=== PATIENT | female | born 1980 | race Caucasian/White ===

== ENCOUNTER 2019-02-12 11:33 | Emergency (ER) | payer BC, OTHER ==
--- OUTSIDE RECORDS SUMMARY | 2019-02-12 11:38 | XMS REPORT | Continuity of Care Document ---
:1980 External Reference #:[id number] Author Name Ellis Kenny Care Team Providers Name Role Phone Flaca Nelson M.D. Primary Care Physician Unavailable Payers Date Identification Numbers Payment Provider Subscriber Policy Number: [id number] [facility] Cherie Vance PayID: [id number] [address] [place] [address] Advance Directives Description No Information Available Problems Description No Information Family History Description No Information Available Social History Type Date Description Comments Sex Unknown Marital Status Single Occupation Wildlife researcher at [employer] ETOH Use Occasionally consumes alcohol Tobacco Use Start: Unknown Patient has never smoked Smoking Status Reviewed: 08/22/18 Patient has never smoked Exercise Type/Frequency Exercises regularly Allergies, Adverse Reactions, Alerts Date Description Reaction Status Severity Comments 09/10/2016 Caffeine migraine Active Medications Medication Date Status Form Strength Qnty SIG Indications Ordering Provider Vivotif 08/[address] 4caps one capsule Z02.89 E. /2017 every other , x 4 M.D. doses, take about an hour before a meal with a cold or lukewarm drink- keep refrigerated Amoxicillin 11/04 Active Capsules 500mg 14cap 1 two times a J06.9 Franck E. /2016 s day for 7 Constanza, days M.D. Ibuprofen 00/00 Active Tablets 200mg as needed Unknown /0000 Doxylamine 0000 Active Powder 12.5 takes at at Unknown Succinate /0000 bedtime otc Melatonin ER 00/00 Active Tablets ER 3mg 1-2 tab by Unknown /0000 mouth every night prn Multivitamin 00/00 Active occasionally Unknown /0000 Calcium 00/00 Active occasionally Unknown /0000 Glucosamine 00/00 Active occasionally Unknown /0000 Flonase 00 Active Suspension 50mcg/Act spray 1 spray Unknown Allergy Relief /0000 in each nostril twice daily Sumatriptan Active Tablets 50mg 14tab take 1 at Franck E. Succinate /0000 s onset of elizabeth Apodaca. may M.D. repeat within 2 hours if needed. max 2x/week. max daily dose 100mg Immunizations CPT Code Status Date Vaccine Lot # [id number] Given 08/22/2018 Influenza Virus Vaccine, Quadrivalent, Split, [id number] Preservative Free [id number] Given 08/22/2018 Hepatitis A Vaccine Adult Dosage [id number] Given 09/10/2016 Influ Virus Vaccine, Quadrivalent, Split Virus, Im [id number] Fluzone not PF Vital Signs Date Vital Result Comment 08/22/2018 9:07am Height 66.5 inches 5'6.50" Weight 208.00 lb Heart Rate 92 /min BP Systolic 116 mmHg BP Diastolic 76 mmHg O2 % BldC Oximetry 96 % BMI (Body Mass Index) 33.1 kg/m2 11/04/2017 5:10pm Height 66.5 inches 5'6.50" Weight 218.00 lb Heart Rate 88 /min BP Systolic Sitting 130 mmHg BP Diastolic Sitting 90 mmHg Body Temperature 97.1 F O2 % BldC Oximetry 98 % BMI (Body Mass Index) 34.7 kg/m2 09/10/2016 3:29pm Height 66.5 inches 5'6.50" Weight 224.00 lb Heart Rate 90 /min BP Systolic Sitting 108 mmHg BP Diastolic Sitting 76 mmHg Body Temperature 98.1 F O2 % BldC Oximetry 97 % BMI (Body Mass Index) 35.6 kg/m2 Results Test Date Facility Test Result H/L Range Note Iron & Iron Binding 09/16/2016 [facility] Iron 141 g/dL N 50 -[address] [place] [address] [phone] Unsaturated Iron Binding 240 g/dL N Total Iron Binding Capacity 381 g/dL N 250-450 % Iron Saturation 37 % N 15-55 Lipid Profile 09/16/2016 [facility] Triglycerides 112 mg/dL N 1 (Trig/Chol/HDL) [address] [place] [address] [phone] Cholesterol 183 mg/dL N 2 HDL Cholesterol 53.9 mg/dL N 3 LDL Cholesterol 107 mg/dL N 4 Comp Metabolic Panel 09/16/2016 [facility] Sodium 136 mmol/L N 133-[address] [place] [address] [phone] Potassium 4.7 mmol/L N 3.5-5.0 Chloride 101 mmol/L N 101-111 Co2 Carbon Dioxide 30 mmol/L N 22-32 Anion Gap 5 mmol/L N 2-11 Glucose 100 mg/dL N 70-100 Blood Urea Nitrogen 12 mg/dL N 6-24 Creatinine 0.77 mg/dL N 0.51-0.95 BUN/Creatinine Ratio 15.6 N 8-20 Calcium 8.9 mg/dL N 8.6-10.3 Total Protein 6.8 g/dL N 6.4-8.9 Albumin 4.1 g/dL N 3.2-5.2 Globulin 2.7 g/dL N 2-4 Albumin/Globulin Ratio 1.5 N 1-3 Total Bilirubin 1.00 mg/dL N 0.2-1.0 Alkaline Phosphatase 60 U/L N 34-104 Alt 16 U/L N 7-52 Ast 17 U/L N 13-39 Egfr Non- 84.8 N >60 Egfr 109.1 N >60 5 CBC Auto Diff 09/16/2016 [facility] White Blood 6.3 10^3/uL N 3.5-10.[address] [place] [address] [phone] Red Blood Count 4.60 10^6/uL N 4.0-5.4 Hemoglobin 14.0 g/dL N 12.0-16.0 Hematocrit 41 % N 35-47 Mean Corpuscular Volume 90 fL N 80-97 Mean Corpuscular Hemoglobin 30 pg N 27-31 Mean Corpuscular HGB Conc 34 g/dL N 31-36 Red Cell Distribution Width 13 % N 10.5-15 Platelet Count 266 10^3/uL N 150-450 Mean Platelet Volume 7 um3 Low 7.4-10.4 Abs Neutrophils 4.2 10^3/uL N 1.5-7.7 Abs Lymphocytes 1.6 10^3/uL N 1.0-4.8 Abs Monocytes 0.4 10^3/uL N 0-0.8 Abs Eosinophils 0.1 10^3/uL N 0-0.6 Abs Basophils 0 10^3/uL N 0-0.2 Abs Nucleated RBC 0.01 10^3/uL N Granulocyte % 66.5 % N 38-83 Lymphocyte % 25.8 % N 25-47 Monocyte % 5.9 % N 1-9 Eosinophil % 1.4 % N 0-6 Basophil % 0.4 % N 0-2 Nucleated Red Blood Cells % 0.2 N Laboratory test 09/16/2016 [facility] TSH (Thyroid 1.90 mcIU/mL N 0.34-5.60 [address] [place]) [place] [address] [phone] Lyme Disease Serology Negative N Negative 7 1 Desirable <150 Borderline high 150-199 High 200-499 Very High >500 2 Desirable <200 Borderline high 200-239 High >239 3 Low <40 Desirable: 40-60 High: >60 4 Desirable: <100 mg/dL Near Optimal: 100-129 mg/dL Borderline High: 130-159 mg/dL High: 160-189 mg/dL Very High: >189 mg/dL 5 Because ethnic data is not always readily available, this report includes an eGFR for both -Americans and non- Americans. The National Kidney Disease Education Program (NKDEP) does not endorse the use of the MDRD equation for patients that are not between the ages of 18 and 70, are , have extremes of body size, muscle mass, or nutritional status, or are non- or non-. According to the National Kidney Foundation, irrespective of diagnosis, the stage of the disease is based on the level of kidney function: Stage Description GFR(mL/min/1.73 m(2)) 1 Kidney damage with normal or decreased GFR 90 2 Kidney damage with mild decrease in GFR 60-89 3 Moderate decrease in GFR 30-59 4 Severe decrease in GFR 15-29 5 Kidney failure <15 (or dialysis) 6 FASTING 7 Serologic response to B. burgdorferi infection is not detected, but cannot rule out early infection during which low or undetectable antibody levels to B. burgdorferi may be present. If clinically indicated, a new serum specimen should be submitted in 7-14 days. Test Performed by: [facility] - [address] [address] [employer] Surveying: Shawn Case II, M.D., Ph.D. Procedures Description No Information Available Encounters Type Date Location Provider Dx Diagnosis Office Visit 08/22/2018 [facility] Internal Franck Wong Z02.89 Encounter for other 9:00a Medicine Lalo Apodaca M.D. administrative [place] examinations Z23 Encounter for immunization Office Visit 11/04/2017 4:40p [facility] Internal Franck Wong J06.9 Acute upper Medicine - Li Apodaca respiratory [place] infection, unspecified Office Visit 09/10/2016 3:20p [facility] Internal Franck Wong Z00.00 Encntr for general Medicine - Li Apodaca adult medical exam [place] w/o abnormal findings M54.5 Low back pain G56.03 Carpal tunnel syndrome, bilateral upper limbs Z13.220 Encounter for screening for lipoid disorders Z13.1 Encounter for screening for diabetes mellitus R53.83 Other fatigue Z23 Encounter for immunization Plan of Treatment 08/22/2018 - Franck Apodaca M.D.Z02.89 Encounter for other administrative examinationsNew Medication:Vivotif - one capsule every other day x 4 doses, take about an hour before a meal with a cold or lukewarm drink- keep refrigeratedComments:Flu, initial Hep A vaccine given today and Rx for oral typhoid vaccine sent in. Travel clinic jonathan suggested for malaria recommendations, as pt unsure if she wants prophylaxis, but per [facility][NOTE 3] site, Rx isadvised.Referral:Dwayne Hu MD, Infectious [id number] Encounter for immunization
[2019-02-12 11:42] VITALS: BP 131/71
--- NOTE | 2019-02-12 12:04 | UC ---
Abdominal Pain Female HPI - HPI Summary HPI Summary: 38-year-old woman comes in with a chief complaint of abdominal pain. Yesterday morning patient woke up without any pain. She had a normal bowel movement. Later in the morning she started having diffuse abdominal bloating and discomfort. At its worst the pain was a 7 out of 10. She had some chills but she did not have a thermometer to check if she had a fever. Because she was loaded she took a laxative and since then has had several loose stools. No blood in the stools. The generalized diffuse tenderness is now gone and the pain remains is in the right lower quadrant at about a 3 out of 10. The pain gets worse with activity. Patient has not had any surgeries. Patient recently had her period which was normal. Denies any abnormal vaginal discharge. Denies any concern of STI or . No burning with urination no blood seen in the urine. - History of Current Complaint Chief Complaint: UCAbdominalPain Stated Complaint: ABDOMINAL PAIN Time Seen by Provider: 02/12/19 11:37 Hx Last Menstrual Period: just finished 2 days ago Pain Intensity: 4 Allergies/Adverse Reactions: Allergies Allergy/AdvReac Type Severity Reaction Status Date / Time caffeine AdvReac triggers Verified 02/12/19 11:42 migraines Home Medications: Home Medications Cbd Oil 02/12/19 [History] Ibuprofen TAB* [Advil TAB*] 200 mg PO ONCE PRN 02/12/19 [History Confirmed 02/12] Multivitamin [Multivitamins] 1 cap PO DAILY 02/12/19 [History Confirmed 02/12/19 ] SUMAtriptan TAB* [Imitrex TAB*] 25 mg PO PRN 02/12/19 [History] Vitamin A/Vit C/Zinc/Propolis [Zinc 15 mg Lozenges] 02/12/19 [History] PMH/Surg Hx/FS Hx/Imm Hx Previously Healthy: Yes Neurological History: Migraine - Surgical History Surgical History: Yes Surgery Procedure, Year, and Place: wisdom teeth - Family History Known Family History: Positive: Non-Contributory - Social History Alcohol Use: Rare Substance Use Type: None Smoking Status (MU): Never Smoked Tobacco Review of Systems All Other Systems Reviewed And Are Negative: Yes Constitutional: Positive: Chills Skin: Positive: Negative Eyes: Positive: Negative ENT: Positive: Negative Respiratory: Positive: Negative Cardiovascular: Positive: Negative Gastrointestinal: Positive: Abdominal Pain, Diarrhea, Nausea. Negative: Vomiting Genitourinary: Positive: Negative. Negative: Dysuria, Hematuria, Frequency, Urgency, Vaginal/Penile Discharge Motor: Positive: Negative Neurovascular: Positive: Negative Musculoskeletal: Positive: Negative Neurological: Positive: Negative Psychological: Positive: Negative Is Patient Immunocompromised?: No Physical Exam Triage Information Reviewed: Yes Appearance: Well-Appearing, No Pain Distress, Well-Nourished Vital Signs: Initial Vital Signs Temp 97.8 F 02/12/19 11:38 Pulse 105 02/12/19 11:38 Resp 18 02/12/19 11:38 BP 131/71 02/12/19 11:38 Pulse Ox 98 02/12/19 11:38 Vital Signs Reviewed: Yes Eye Exam: Normal Eyes: Positive: Conjunctiva Clear ENT: Positive: Pharynx normal Neck exam: Normal Neck: Positive: Supple Respiratory: Positive: Lungs clear, Normal breath sounds, No respiratory distress Cardiovascular: Positive: RRR Abdomen Description: Positive: Guarding - RLQ, Other: - Negative heel strike. Positive obturator sign.. Negative: CVA Tenderness (R), CVA Tenderness (L), Distended Bowel Sounds: Positive: Present Musculoskeletal Exam: Normal Musculoskeletal: Positive: Strength Intact, ROM Intact Neurological Exam: Normal Neurological: Positive: Alert, Muscle Tone Normal Psychological Exam: Normal Psychological: Positive: Age Appropriate Behavior Skin Exam: Normal Abd Pain Female Course/Dx - Course Course Of Treatment: Patient Name: EVERARDO ATWOOD Medical Record#: [id number] Ordering Physician: Sahwn Jackson MD Acct.#: [id number] : 1980 Age: 38 Sex: F Location: [facility] Exam Date: 02/12/19 1201 ADM Status: [facility] ER Order Information: CT ABD/PEL W/O Accession Number: [id number] CPT: 19413 Indication: Right lower quadrant pain. CT of the abdomen and pelvis was performed without oral or IV contrast administration. Coronal and sagittal reconstructed images were obtained. Lung bases demonstrate no pleural fluid, nodules or masses. Heart is of normal size without pericardial effusion. Liver is normal in size. Low density lesion in the left lobe of liver may represent cyst or hemangioma. No other focal lesions or intrahepatic ductal dilatation is noted. The spleen is normal in size. Pancreas demonstrates no mass or pancreatic duct dilatation. No adrenal masses are noted. The kidneys demonstrates no hydronephrosis. Aorta and inferior vena cava are unremarkable. No retroperitoneal lymphadenopathy is noted. Periappendiceal infiltration of fat is noted with thickened appendix consistent with acute appendicitis. No free fluid is identified. No abnormal fluid collections are noted. IMPRESSION: Findings consistent with appendicitis. Findings discussed with Dr. Jackson at 12:42 PM <Electronically signed by Charity Morales MD in OV> 02/12/19 6541 I discussed the patient with the surgeon Dr. Lee. I discussed the CT report with the patient. I discussed the patient with the emergency room physician Dr. Martines. I discussed with the patient to go to the emergency department right away for further treatment. She declined ambulance transport will go by POV. - Differential Dx/Diagnosis Provider Diagnosis: Appendicitis, RLQ abdominal pain Discharge - Sign-Out/Discharge Documenting (check all that apply): Patient Departure All imaging exams completed and their final reports reviewed: Yes - Discharge Plan Condition: Stable Disposition: HOME-RECOMMEND TO ED Referrals: Franck Apodaca MD [Primary Care Provider] - Additional Instructions: GO DIRECTLY TO THE EMERGENCY DEPARTMENT FOR FURTHER CARE OF YOUR APPENDICITIS. THE SURGEON SHOT HOLE DRILLER, DR LEE, IS AWARE OF YOU APPENDICITIS. - Billing Disposition and Condition Condition: STABLE Disposition: Home-Recommend to ED
== END 2019-02-12 13:10 | disposition home health service (06) ==
LOC: UCEAST 11:33
DX: K37 Unspecified appendicitis (principal); R10.31 Right lower quadrant pain; G43.909 Migraine, unspecified, not intractable, without status migrainosus; Z79.899 Other long term (current) drug therapy; Z91.018 Allergy to other foods
CPT/HCPCS: 74176; 81003; 84702; 99212; G0463

== ENCOUNTER 2019-02-12 14:33 | Inpatient (IN) | payer BC ==
--- NOTE | 2019-02-12 14:47 | ED ---
Abdominal Pain/Female - HPI Summary HPI Summary: A 38 y/o F arrives by car and [place] [facility] [place] presents to ED with c/o RLQ pain onset yesterday AM. Associated sx: nausea. Patient had images done at [facility], and per Dr. Lin's report ([facility] provider), Dr. Lee, surgery, has reviewed those images and confirmed appendicitis. Dr. Lee recommends fluids, ABX. Allergies: Caffeine trigger migraines. - History of Current Complaint Chief Complaint: EDAbdPain Stated Complaint: I HAVE APENDICITIS Time Seen by Provider: 02/12/19 14:44 Hx Obtained From: Patient Hx Last Menstrual Period: just finished 2 days ago Onset/Duration: Lasting Days - yesterday AM, Still Present Timing: Constant Severity Initially: Mild Severity Currently: Moderate Pain Intensity: 4 Pain Scale Used: 0-10 Numeric Location: Discrete At: RLQ Associated Signs and Symptoms: Positive: Nausea Allergies/Adverse Reactions: Allergies Allergy/AdvReac Type Severity Reaction Status Date / Time caffeine AdvReac triggers Verified 02/12/19 14:38 migraines Home Medications: Home Medications Melatonin 6 mg PO BEDTIME 02/12/19 [History Confirmed 02/12/19] PMH/Surg Hx/FS Hx/Imm Hx Previously Healthy: Yes Endocrine/Hematology History: Denies: Hx Diabetes, Hx Thyroid Disease Cardiovascular History: Denies: Hx Hypertension Respiratory History: Denies: Hx Asthma, Hx Chronic Obstructive Pulmonary Disease (COPD) GI History: Denies: Hx Ulcer Musculoskeletal History: Denies: Hx Rheumatoid Arthritis, Hx Osteoporosis - Surgical History Surgery Procedure, Year, and Place: wisdom teeth Infectious Disease History: No Infectious Disease History: Denies: Hx Hepatitis, Hx Human Immunodeficiency Virus (HIV), Traveled Outside the [place] in Last 30 Days - Family History Known Family History: Positive: Non-Contributory - Social History Occupation: Employed Full-time Lives: Alone Alcohol Use: Rare Hx Substance Use: No Substance Use Type: Reports: None Hx Tobacco Use: No Smoking Status (MU): Never Smoked Tobacco Review of Systems Negative: Fever Positive: Abdominal Pain, Nausea All Other Systems Reviewed And Are Negative: Yes Physical Exam - Summary Physical Exam Summary: Appearance: The patient is well-nourished in no acute distress and in no acute pain. Skin: The skin is warm and dry and skin color reflects adequate perfusion. HEENT: The head is normocephalic and atraumatic. The pupils are equal and reactive. The conjunctivae are clear and without drainage. Nares are patent and without drainage. Mouth reveals moist mucous membranes and the throat is without erythema and exudate. The external ears are intact. The ear canals are patent and without drainage. The tympanic membranes are intact. Neck: the neck is supple with full range of motion and non-tender. There are no carotid bruits. There is no neck vein distension. Respiratory: Chest is non-tender. Lungs are clear to auscultation and breath sounds are symmetrical and equal. Cardiovascular: Heart is regular rate and rhythm. There is no murmur or rub auscultated. There is no peripheral edema and pulses are symmetrical and equal. Abdomen: The abdomen is soft. There is RLQ tenderness. There are normal bowel sounds heard in all four quadrants and there is no organomegaly palpated. Musculoskeletal: There is no back tenderness noted. Extremities are non-tender with full range of motion. There is good capillary refill. There is no peripheral edema or calf tenderness elicited. Neurological: Patient is alert and oriented to person, place and time. The patient has symmetrical motor strength in all four extremities. Cranial nerves are grossly intact. Deep tendon reflexes are symmetrical and equal in all four extremities. Psychiatric: The patient has an appropriate affect and does not exhibit any anxiety or depression. Triage Information Reviewed: Yes Vital Signs On Initial Exam: Initial Vitals Temp Pulse Resp BP Pulse Ox 98.0 F 102 19 130/92 97 02/12/19 14:36 02/12/19 14:36 02/12/19 14:36 02/12/19 14:36 02/12/19 14:36 Vital Signs Reviewed: Yes Diagnostics - Vital Signs Vital Signs Temp Pulse Resp BP Pulse Ox 02/12/19 14:36 98.0 F 102 19 130/92 97 - Laboratory Result Diagrams: 02/12/19 15:12 02/12/19 15:12 Lab Statement: Any lab studies that have been ordered have been reviewed, and results considered in the medical decision making process. Abdominal Pain Fem Course/Dx - Course Course Of Treatment: Ms. Vance came from the [facility] care already diagnosed with an appendicitis by CT scan. An IV was initiated and she was given IV Zosyn and fluids. She was nontoxic in appearance with stable vitals when she presented and Dr. Mathew was contacted, came to the department and admitted her to the OR. - Diagnoses Provider Diagnoses: Appendicitis - Provider Notifications Discussed Care Of Patient With: Guille Lee - surgery Time Discussed With Above Provider: 14:55 Instructed by Provider To: Admit As Inpatient - Will see pt within the hour in ED. Discharge - Sign-Out/Discharge Documenting (check all that apply): Patient Departure - ADMIT Patient Received Moderate/Deep Sedation with Procedure: No - Discharge Plan Condition: Good Disposition: ADMITTED TO [facility] - Billing Disposition and Condition Condition: GOOD Disposition: Admitted to [facility] - Attestation Statements Document Initiated by Rikaibe: Yes Documenting Scribe: Neda Ny Provider For Whom Michael is Documenting (Include Credential): Dr. Martin Lugo MD Scribe Attestation: Neda Raymond, scribed for Dr. Martin Lugo MD on 02/12/19 at 2123. Scribe Documentation Reviewed: Yes Provider Attestation: The documentation as recorded by the Neda chavez accurately reflects the service I personally performed and the decisions made by me, Dr. Martin Lugo MD Status of Scribe Document: Viewed
[2019-02-12] MEDS ORDERED: NS 0.9% 1000 ML** 1,000 ML IV ONE (14:48)
[2019-02-12] MEDS ORDERED: Piperacillin/Tazobac ADVAN(*) 3.375 GM in NS 0.9% 100 ML* 100 ML IVPB ONE (14:48)
[2019-02-12 15:18] LABS: ABS Basophils 0 10^3/ul (0-0.2); ABS Eosinophils 0.1 10^3/ul (0-0.6); ABS Lymphocytes 1.4 10^3/ul (1.0-4.8); ABS Monocytes 0.7 10^3/ul (0-0.8); ABS Nucleated RBC 0 10^3/ul; Eosinophil % 0.8 %; Hematocrit 42 % (33-41); Hemoglobin 14.3 g/dL (12.0-16.0); Mean Corpuscular HGB Conc 34 g/dL (31-36); Mean Corpuscular Hemoglobin 31 pg (27-31); Mean Corpuscular Volume 91 fL (80-97); Mean Platelet Volume 6.8 fL (7.4-10.4); Nucleated Red Blood Cells % 0; Platelet Count 265 10^3/uL (150-450); Red Cell Distribution Width 14 % (10.5-15); White Blood Count 9.1 10^3/uL (3.5-10.8)
[2019-02-12 15:35] LABS: ALT 10 U/L (7-52); AST 13 U/L (13-39); Albumin 4.4 g/dL (3.2-5.2); Albumin/Globulin Ratio 1.4 (1-3); Alkaline Phosphatase 58 U/L (34-104); Anion Gap 7 mmol/L (2-11); BUN/Creatinine Ratio 13.7 (8-20); Blood Urea Nitrogen 13 mg/dL (6-24); CO2 Carbon Dioxide 27 mmol/L (22-32); Chloride 102 mmol/L (101-111); EGFR African American 79.7 (>60); EGFR Non-African American 65.8 (>60); Globulin 3.1 g/dL (2-4); Glucose 108 mg/dL (70-100); Potassium 4.2 mmol/L (3.5-5.0); Sodium 136 mmol/L (135-145); Total Protein 7.5 g/dL (6.4-8.9)
[2019-02-12] MEDS ORDERED: Bupivacaine 0.25% W/EPI* 10 ML SDV ONE (16:38)
[2019-02-12 16:54] LABS: HCG Pregnancy < 0.60 mIU/mL
[2019-02-12] MEDS ORDERED: Buffered Lidocaine 1% SYRIN* 1 ML/SYRINGE INTRADERM ONE (17:10)
[2019-02-12] MEDS ORDERED: Lactated Ringers 1000 ML Bag* 1,000 ML IV SCH (18:00)
[2019-02-12] MEDS ORDERED: metroNIDAZOLE IV 500 MG/100ML* 500 MG/100 ML BAG IVPB ONE (18:00)
[2019-02-12] MEDS ORDERED: ceFAZolin 2 GM in NS PREMIX(*) 2 GM/100 ML BAG IVPB ONE (18:00)
[2019-02-12] MEDS ORDERED: Acetaminophen IV 1GM/100ML * 1,000 MG/100 ML VIAL IVPB ONE (18:29)
[2019-02-12] MEDS ORDERED: DiMENhydriNATE IV* 50 MG/ML VIAL IV PUSH PRN (18:29)
[2019-02-12] MEDS ORDERED: HYDROmorphone INJ1* 1 MG/ML SYRINGE IV PRN (18:29)
[2019-02-12] MEDS ORDERED: Naloxone* 0.4 MG/ML 1 ML VIAL IV PRN (18:29)
[2019-02-12] MEDS ORDERED: oxyCODONE TAB* 5 MG TAB PO PRN (18:29)
--- NOTE | 2019-02-12 18:47 | BRIEFOPN ---
Brief Operative Note - Surgery Procedures: Pre-OP Diagnoses: acute appendicitis Post-op Diagnosis: same Procedure: Laparoscopic appendectomy Surgeon: Jesus Asst: none Anethesia: ALEXUSA EBL: minimal IVF: crystalloid Specimen: appendix Drains: none
[2019-02-12 19:56] VITALS: BP 120/78
--- NOTE | 2019-02-12 23:40 | OP ---
CC: Dr. Franck Apodaca * DATE OF OPERATION: 02/12/19 - ROOM #AA-2 DATE OF : 80 SURGEON: Guille Lee MD. PLUNGER MACHINE OPERATOR: None. ANESTHESIOLOGIST: Dr. Rice. ANESTHESIA: General. PRE-OP DIAGNOSIS: Acute appendicitis. POST-OP DIAGNOSIS: Acute appendicitis. OPERATIVE PROCEDURE: Laparoscopic appendectomy. ESTIMATED BLOOD LOSS: Minimal. FLUIDS: Minimal crystalloid fluids given. SPECIMEN: Appendix. DESCRIPTION OF PROCEDURE: The patient was identified in the preoperative area, consent was signed. She was marked, taken to the operating room, placed on the operating table in supine position. Preoperative antibiotics were given. Sequential devices were placed on bilateral lower extremities. General anesthesia was induced. The patient's abdomen was prepped and draped in standard surgical fashion. Folds of the umbilicus were elevated anteriorly and a Veress needle inserted into the abdominal cavity and the abdomen was allowed to insufflate to a pressure of 15 mmHg. The patient tolerated insufflation well. Veress needle was removed, and a 10-mm trocar was then inserted through an umbilical incision. Laparoscope was inserted through this. There was no evidence of injury from trocar insertion or from the Veress needle. Review of the abdomen showed normal appearing bowel, scant free fluid in the pelvis. Additional trocars were placed in the following positions: 5 mm in the suprapubic area, 5 mm in the left lower quadrant. Table was repositioned. Appendix was identified. This showed a veil of attachments to the lateral abdominal wall. This was taken with electrocautery. Both blunt and sharp dissection allowed us to bring the appendix up towards the midline by first taking the cecal attachments and appendiceal attachment down laterally. We made a window at the base of the appendix, but the appendix was still curled up over the overlying cecum and required additional dissection, which included cautery as below with blunt dissection. Once we were able to lift this up and get the tip of the appendix freed up, we then fired across the base of the appendix through healthy tissue with 30-mm flowers ANDRE stapling device. Next, the cautery was used to take down the mesoappendix until we got to the main artery, which was doubly clipped and ligated. The appendix was then placed in endoscopic retrieval bag. We suction out the fluid and we had used the suction volcanology teacher to help with the dissection. Table was repositioned back to neutral. Hemostasis was excellent. Staple line intact without any enteric leakage. Appendix was nonperforated. Next, the appendix was removed with the endoscopic retrieval bag through the umbilical port site, which was then closed in fascial layer with a closure device using a 0 Polysorb suture. All three skin incisions were reapproximated with 4-0 Monocryl subcuticular sutures, followed by Steri-Strips and sterile dressing. The patient tolerated the procedure well and was woken up and transferred to PACU in stable condition. [id number]/[facility] #: [id number] [facility] HOSPITALJose L
--- NOTE | 2019-02-13 03:36 | HP ---
CC: Franck Apodaca MD; [facility] * HISTORY AND PHYSICAL: DATE OF ADMISSION: 02/12/19 - ROOM #AA-2 HISTORY OF PRESENT ILLNESS: I was called by Urgent Care earlier today regarding Ms. Vance, a 38-year-old female, who presented with abdominal pain, worse in right lower quadrant. Workup there included a CAT scan, noncontrast. Images were consistent with acute appendicitis and the patient was referred to the emergency room at [facility]. In the ER, the patient showed some improvement and I evaluated the patient. The patient describes onset of symptoms in the morning yesterday, accompanied with decreased appetite, loose bowel movements, but no nausea or vomiting, no fevers or chills. Pain was in the right lower quadrant, improved with rest or narcotics, worsened with movement. The patient denied any previous similar symptoms. PAST MEDICAL HISTORY: Migraines. PAST SURGICAL HISTORY: None. MEDICATIONS: Medication list reviewed. ALLERGIES: To CAFFEINE. FAMILY HISTORY: Family history of diverticulitis. SOCIAL HISTORY: Nonsmoker. Denies IV drug abuse. Occasional alcohol use. She lives with a roommate. REVIEW OF SYSTEMS: No fevers. No chills. No shortness of breath or chest pain. Fair exercise tolerance. She does kickboxing. She denies irritable bowel symptoms. No change in bowel habits. She has never had colonoscopy. No endocrine disorders. No psychiatric illnesses. PHYSICAL EXAMINATION GENERAL: Alert and oriented x3. No apparent distress. VITAL SIGNS: The patient is afebrile. Heart rate 100. HEAD, EYES, EARS, NOSE, AND THROAT: Normocephalic, atraumatic. Sclerae anicteric. Mucous membranes are moist. LUNGS: Clear to auscultation bilaterally. ABDOMEN: Soft, nondistended. Tender with guarding at McBurney's point. No hernias or masses noted. No CVA tenderness. RECTAL: Not performed. EXTREMITIES: Within normal limits. DIAGNOSTIC STUDIES/LABORATORY DATA: Labs show white count 9.1. Chemistry with elevated bilirubin and elevated CRP. CAT scan noncontrast reviewed and consistent with acute appendicitis with dilated appendix. IMPRESSION: Acute appendicitis. PLAN/RECOMMENDATIONS: Laparoscopic appendectomy. Outlined in details the procedure, going over the risks, benefits, and alternatives. The patient wishes to proceed. We spoke about possible complications, which include but are not limited to bleeding, infection, need for additional procedures, injury to intraabdominal organs. The patient agreed, signed consent, and was marked. She will get IV antibiotics and go to the OR urgently for a laparoscopic appendectomy with possibility of discharge home afterwards. We did discuss the alternatives of antibiotics and watchful waiting at length and the patient's questions were answered. [id number]/CPS #: [id number] MTDD
== END 2019-02-12 19:55 | disposition home or self-care (01) | DRG 225 ==
LOC: ED 14:33 → AA 16:28 → OR 16:48
PROVIDERS: ADMIT Surgery; ATTEND Surgery
PROC: 0DTJ4ZZ Resection of Appendix, Percutaneous Endoscopic Approach (ICD-10-PCS; principal; 2019-02-12 17:00)
DX: K35.80 Unspecified acute appendicitis (principal); G43.909 Migraine, unspecified, not intractable, without status migrainosus; Z91.018 Allergy to other foods; Z83.79 Family history of other diseases of the digestive system; Z79.899 Other long term (current) drug therapy
CPT/HCPCS: 36415; 80053; 83605; 84702; 85025; 86140; 88304; 99284; J0690; J2543; J3490

== ENCOUNTER 2019-06-26 08:51 | Emergency (ER) | payer BC ==
[2019-06-26 09:00] VITALS: BP 118/60
--- NOTE | 2019-06-26 09:09 | UC ---
Lower Extremity/Ankle HPI - HPI Summary HPI Summary: 39-year-old female presents with complaints of right foot pain, bruising, and swelling. States 2 days ago she was kick boxing without her pads, she threw a kick that was blocked by her opponent with their grace. She has been able to walk and bear weight with some discomfort since the injury. Denies any numbness or tingling. - History of Current Complaint Chief Complaint: UCLowerExtremity Stated Complaint: R FOOT INJURY Time Seen by Provider: 06/26/19 09:05 Hx Obtained From: Patient Hx Last Menstrual Period: 06/13/19 Pain Intensity: 4 - Allergies/Home Medications Allergies/Adverse Reactions: Allergies Allergy/AdvReac Type Severity Reaction Status Date / Time caffeine AdvReac triggers Verified 06/26/19 09:01 migraines PMH/Surg Hx/FS Hx/Imm Hx Previously Healthy: Yes Neurological History: Migraine - Surgical History Surgical History: Yes Surgery Procedure, Year, and Place: wisdom teeth. appendix removed in february 2019 - Family History Known Family History: Positive: Non-Contributory - Social History Occupation: Employed Full-time Lives: Alone Alcohol Use: Weekly Substance Use Type: None Smoking Status (MU): Never Smoked Tobacco Review of Systems All Other Systems Reviewed And Are Negative: Yes Constitutional: Positive: Negative Skin: Positive: Bruising Respiratory: Positive: Negative Cardiovascular: Positive: Negative Gastrointestinal: Positive: Negative Genitourinary: Positive: Negative Motor: Negative: Weakness Neurovascular: Negative: Decreased Sensation Musculoskeletal: Positive: Other: - See HPI Neurological: Positive: Negative Physical Exam - Summary Physical Exam Summary: GENERAL APPEARANCE: Alert and cooperative adult female who appears to be in no acute distress. CARDIAC: Normal S1 and S2. No S3, S4 or murmurs. Rhythm is regular. There is no peripheral edema, cyanosis or pallor. Extremities are warm and well perfused. Capillary refill is less than 2 seconds. Peripheral pulses intact. LUNGS: Clear to auscultation without rales, rhonchi, wheezing or diminished breath sounds. ABDOMEN: Positive bowel sounds. Soft, nondistended, nontender. No guarding or rebound. No masses or hepatosplenomegally. MUSKULOSKELETAL: Normal muscular development. Normal gait. EXTREMITIES: Mild tenderness over the 3rd, 4th, and 5th metatarsals of the right foot with moderate ecchymosis and edema to the dorsolateral aspect of the foot. Circulation and sensation intact. SKIN: Skin normal color, texture and turgor. Triage Information Reviewed: Yes Vital Signs: Initial Vital Signs Temp 97.9 F 06/26/19 08:55 Pulse 78 06/26/19 08:55 Resp 18 06/26/19 08:55 BP 118/60 06/26/19 08:55 Pulse Ox 99 06/26/19 08:55 Vital Signs Reviewed: Yes Diagnostics - Radiology No standard instances Radiology Interpretation Completed By: Radiologist Summary of Radiographic Findings: Order Information: FOOT RIGHT 3+ VWS. Accession Number: [id number]. CPT: 90095. INDICATION: Right foot injury. TECHNIQUE: 3 views of the right foot were obtained. FINDINGS: There is mild soft tissue swelling over the dorsal forefoot. The bone mineralization is within normal limits. No fracture is identified. Anatomic alignment is maintained. The joint spaces are preserved. IMPRESSION: Mild soft tissue swelling over the dorsal forefoot with no fracture or traumatic malalignment. Lower Extremity Course/Dx - Course Course Of Treatment: 39-year-old female presents with complaints of right foot pain, bruising, and swelling. States 2 days ago she was kick boxing without her pads, she threw a kick that was blocked by her opponent with their grace. She has been able to walk and bear weight with some discomfort since the injury. Denies any numbness or tingling. Afebrile. Vital signs stable. Patient had mild tenderness over the 3rd, 4th, and 5th metatarsals of the right foot with moderate ecchymosis and edema to the dorsolateral aspect of the foot. Circulation and sensation intact. Remainder of exam was unremarkable. X-ray showed no acute fracture-dislocation. Recommending conservative treatment for a right foot contusion including [id number] analgesics and RICE. She is to follow-up with her primary care provider or orthopedic surgery in 5-7 days if symptoms are not improving. Anticipatory guidance and warning symptoms were reviewed with the patient. Verbalizes understanding and agrees with the plan of care. - Differential Dx/Diagnosis Differential Diagnosis/HQI/PQRI: Contusion, Fracture (Closed), Sprain Provider Diagnosis: Contusion of right foot Discharge - Sign-Out/Discharge Documenting (check all that apply): Patient Departure All imaging exams completed and their final reports reviewed: No Studies - Discharge Plan Condition: Stable Disposition: HOME Patient Education Materials: Foot Contusion (ED) Referrals: Flaca Nelson MD [Primary Care Provider] - Timo Schumacher MD [Medical Doctor] - Additional Instructions: The x-ray performed in the clinic today showed no evidence of a fracture. Rest the foot as much as possible. Apply ice to the affected area for 15-20 minutes at least 4 times a day to help with the pain and swelling. Elevate the leg to help reduce swelling. Take acetaminophen (Tylenol) or ibuprofen (Advil, Motrin) according to directions as needed for pain. Follow up with your primary care provider or orthopedic surgery in 5-7 days if symptoms do not improve. Seek immediate medical attention if you have severe pain not managed with pain medication, you are unable to walk or bear any weight, develop numbness or tingling in the foot or toes, or have any worsening of symptoms. - Billing Disposition and Condition Condition: STABLE Disposition: Home
--- OUTSIDE RECORDS SUMMARY | 2019-06-26 18:02 | XMS REPORT | Continuity of Care Document ---
:1980 External Reference #:[id number] Author Name Fabienne Mejia Care Team Providers Name Role Phone Flaca Nelson M.D. Primary Care Physician Unavailable Payers Date Identification Numbers Payment Provider Subscriber Policy Number: [id number] [facility] Cherie Atwood PayID: [id number] [address] [place] [address] Family History Date Family Member(s) Observation Comments Mother Diabetes Type II Mother Breast Cancer Social History Type Date Description Comments Sex Unknown Marital Status Single Lives With Alone has BF, not sexually active Occupation Wildlife researcher at [employer] ETOH Use Rarely consumes alcohol Tobacco Use Start: Unknown Patient has never smoked Recreational Drug Use Denies Drug Use Smoking Status Reviewed: 06/16/19 Patient has never smoked Exercise Type/Frequency Exercises regularly Muay Azeri, lots of physical trauma Allergies, Adverse Reactions, Alerts Active Allergies Reaction Severity Comments Date Caffeine migraine 09/10/2016 Medications Active Medications SIG Qnty Indications Ordering Date Provider Ibuprofen as needed Unknown 200mg Tablets Doxylamine Succinate takes at at bedtime Unknown otc 12.5 Powder Melatonin ER 1-2 tab by mouth Unknown 3mg every night prn Tablets ER Multivitamin occasionally Unknown Calcium occasionally Unknown Glucosamine occasionally Unknown Flonase Allergy spray 1 spray in Unknown Relief each nostril twice 50mcg/Act daily Suspension Sumatriptan take 1 at onset of 14tabs Franck E. Succinate migraine. may repeat Li Apodaca 50mg within 2 hours if Tablets needed. max 2x/week. max daily dose 100mg History Medications Vivotif one capsule every 4caps Z02.89 Franck Marvin 08/22/2018 - Capsules other day x 4 doses, Li Apodaca Unknown DR take about an hour before a meal with a cold or lukewarm drink- keep refrigerated Amoxicillin 1 two times a day 14caps J06.9 Franck Wong 11/04/2017 - 500mg for 7 days Li Apodaca Unknown Capsules Immunizations CPT Code Status Date Vaccine Lot # [id number] Given 08/22/2018 Influenza Virus Vaccine, Quadrivalent, Split, [id number] Preservative Free [id number] Given 08/22/2018 Hepatitis A Vaccine Adult Dosage [id number] Given 09/10/2016 Influ Virus Vaccine, Quadrivalent, Split Virus, Im [id number] Fluzone not PF Vital Signs Date Vital Result Comment 06/16/2019 3:31pm Height 66.5 inches 5'6.50" Weight 216.00 lb Heart Rate 77 /min BP Systolic Sitting 131 mmHg BP Diastolic Sitting 77 mmHg BMI (Body Mass Index) 34.3 kg/m2 05/17/2019 4:03pm Height 66.5 inches 5'6.50" Weight 212.00 lb Heart Rate 74 /min BP Systolic Sitting 105 mmHg BP Diastolic Sitting 65 mmHg BMI (Body Mass Index) 33.7 kg/m2 05/15/2019 8:01am Height 66.5 inches 5'6.50" Weight 213.00 lb Heart Rate 77 /min BP Systolic 116 mmHg BP Diastolic 71 mmHg O2 % BldC Oximetry 98 % BMI (Body Mass Index) 33.9 kg/m2 Last Menstrual Period [id number] 02/16/2019 2:30pm Height 66.5 inches 5'6.50" Weight 201.00 lb Heart Rate 72 /min BP Systolic 118 mmHg BP Diastolic 74 mmHg Respiratory Rate 16 /min Body Temperature 98.2 F BMI (Body Mass Index) 32.0 kg/m2 08/22/2018 9:07am Height 66.5 inches 5'6.50" Weight [...] Date Facility Test Result H/L Range Note Laboratory test 05/30/2019 [facility] TSH 0.97 mcIU/mL N 0.34- 5.[address] ([place] [address] Stim Horm) [phone] Free T4 (Free Thyroxine) 0.80 ng/dL N 0.61-1.12 Erythrocyte Sed Rate 8 mm/Hr N 0-19 C Reactive Protein 2.82 mg/L N <8.01 Laboratory test 05/15/2019 [facility] Cytology SEE RESULT [address] [place] [address] [phone] Laboratory test 02/12/2019 [facility] Surgical SEE RESULT [address] [place] [address] [phone] Laboratory test 02/12/2019 [facility] Lactic Acid 1.0 mmol/L N 0.5-2. [address] [place] [address] [phone] CBC Auto Diff 02/12/2019 [facility] White Blood 9.1 10^3/uL N 3.5-[address] Count .8 [place] [address] [phone] Red Blood Count 4.60 10^6/uL N 3.70-4.87 Hemoglobin 14.3 g/dL N 12.0-16.0 Hematocrit 42 % High 33-41 Mean Corpuscular Volume 91 fL N 80-97 Mean Corpuscular Hemoglobin 31 pg N 27-31 Mean Corpuscular HGB Conc 34 g/dL N 31-36 Red Cell Distribution Width 14 % N 10.5-15 Platelet Count 265 10^3/uL N 150-450 Mean Platelet Volume 6.8 fL Low 7.4-10.4 Abs Neutrophils 7.0 10^3/uL N 1.5-7.7 Abs Lymphocytes 1.4 10^3/uL N 1.0-4.8 Abs Monocytes 0.7 10^3/uL N 0-0.8 Abs Eosinophils 0.1 10^3/uL N 0-0.6 Abs Basophils 0 10^3/uL N 0-0.2 Abs Nucleated RBC 0 10^3/uL Granulocyte % 76.5 % Lymphocyte % 15.0 % Monocyte % 7.4 % Eosinophil % 0.8 % Basophil % 0.3 % Nucleated Red Blood Cells % 0 Comp Metabolic Panel 02/12/2019 [facility] Sodium 136 mmol/L N 135-[address] [place] [address] [phone] Potassium 4.2 mmol/L N 3.5-5.0 Chloride 102 mmol/L N 101-111 Co2 Carbon Dioxide 27 mmol/L N 22-32 Anion Gap 7 mmol/L N 2-11 Glucose 108 mg/dL High 70-100 Blood Urea Nitrogen 13 mg/dL N 6-24 Creatinine 0.95 mg/dL N 0.51-0.95 BUN/Creatinine Ratio 13.7 N 8-20 Calcium 9.0 mg/dL N 8.6-10.3 Total Protein 7.5 g/dL N 6.4-8.9 Albumin 4.4 g/dL N 3.2-5.2 Globulin 3.1 g/dL N 2-4 Albumin/Globulin Ratio 1.4 N 1-3 Total Bilirubin 1.40 mg/dL High 0.2-1.0 Alkaline Phosphatase 58 U/L N 34-104 Alt 10 U/L N 7-52 Ast 13 U/L N 13-39 Egfr Non- 65.8 >60 Egfr 79.7 >60 4 Laboratory test 02/12/2019 [facility] C Reactive 107.60 mg/L High <8.[address] [place] [address] [phone] HCG < 0.60 mIU/mL 5 Laboratory test 02/12/2019 [facility] Poc , Negative Negative [address] [place] [address] [phone] Poc Urinalysis 02/12/2019 [facility] Poc Glucose, Negative Negative [address] [place] [address] [phone] Poc Bilirubin, Urine 1+ Abnormal Negative Poc Ketone, Urine 1+ Abnormal Negative Poc Specific [place], Urine >=1.030 N 1.010-1.030 Poc Blood, Urine Negative Negative Poc pH, Urine 5.5 N 5-9 Poc Protein, Urine 2+ Abnormal Negative Poc Urobilinogen, Urine 1.0 Negative Poc Nitrite, Urine Negative Negative Poc Leukocytes, Urine Negative Negative Poc Color, Urine Ruth Poc Clarity, Urine Slightly Cloudy 7 Iron & Iron Binding 09/16/2016 [facility] Iron 141 g/dL N 50 -[address] [place] [address] [phone] Unsaturated Iron Binding 240 g/dL N Total Iron Binding Capacity 381 g/dL N 250-450 % Iron Saturation 37 % N 15-55 Lipid Profile 09/16/2016 [facility] Triglycerides 112 mg/dL N 8 (Trig/Chol/HDL) [address] [place] [address] [phone] Cholesterol 183 mg/dL N 9 HDL Cholesterol 53.9 mg/dL N 10 LDL Cholesterol 107 mg/dL N 11 Comp Metabolic Panel 09/16/2016 [facility] Sodium 136 mmol/L N 133-145 [address] [place] [address] [phone] Potassium 4.7 mmol/L N 3.5-5.0 Chloride 101 [...] 84.8 N >60 Egfr 109.1 N >60 12 CBC Auto Diff 09/16/2016 [facility] White Blood 6.3 10^3/uL N 3.5-10.[address] [place] [address] [phone] Red Blood Count 4.60 10^6/uL N 4.0-5.4 [...] Cells % 0.2 N Laboratory test 09/16/2016 [facility] TSH (Thyroid 1.90 mcIU/mL N 0.34-5.60 [address] Stim [place]orm) [place] [address] [phone] Lyme Disease Serology Negative N Negative 14 1 SEE RESULT BELOW Name: CHERIE ATWOOD : [address]: Marjorie RINCON Acct: [id number] Unit: [id number] AGE: 39 Location: [facility] Re05/15/19 SEX: F Status: REG REF SPEC: [id number] EVGENY: 05/15/[address]: Marjorie Penaloza NP [facility] REQ: [id number] RECD: 05/15/19 STATUS: SOUT _ ORDERED: TP IMAGE ANALYS, HPV/Thin Prep COMMENTS: [id number] Negative for Intraepithelial lesion or Malignancy Date Time Test Result Flag (u) Normal Range 05/15/19 0806 HPV RNA Negative Negative The high-risk HPV types detected by the assay include: 16, 18, 31, 33, 35, 39, 45, 51, 52, 56, 58, 59, 66, and 68. A. Ectocervical/Endocervical Specimen Adequacy: Satisfactory of evaluation Transformation zone component identified Patient Information: HPV: High risk HPV RNA testing regardless of pap results. Actual Specimen Date: 05/15/19 Last Menstrual Date: 04/18/19 ?: N Post Menopausal?: N Hysterectomy?: N Signed by and Reported on: KwasiLULU Santos (ASCP) 0940 This Pap test was evaluated with the assistance of the MunaxPrep Test Imaging System. Due to cytologic findings at the crab picker microscope, comprehensive manual rescreening by a Fire Regulator may be required. The Pap Smear is a screening test designed to aid in the detection of premalignant and malignant conditions of the uterine cervix. It is not a diagnostic procedure and should not be used as the sole means of detecting cervical cancer. Both false- positive and false- negative reports do occur. Depending on your risk status, a Pap smear should be obtained and evaluated every 1-3 years. END OF REPORT DEPARTMENT OF PATHOLOGY, [address] [place] [address] Juarez Mcdaniel M.D. Director [facility] # [id number] 2 SEE RESULT BELOW Name: CHERIE ATWOOD : [address]: Guille Lee MD Acct: [id number] Unit: [id number] AGE: 38 Location: [place] [address] Re02/12/19 Dis: 02/12/19 SEX: F Status: DIS IN SPEC: [id number] EVGENY: 02/12/19- [facility] DR: Guille Lee MD REQ: [id number] RECD: 02/12/19 STATUS: SOUT _ ORDERED: LEVEL 3 FINAL DIAGNOSIS Appendix, appendectomy: -- Acute appendicitis and liliane-appendicitis. PRE-OPERATIVE DIAGNOSIS Acute appendicitis GROSS DESCRIPTION The specimen is received in formalin labeled, Appendix, and consists of a 6.0 cm appendix with moderate attached mesoappendix. The external diameter ranges from 0.6 cm in the distal tip to 1.0 cm in the mid to distal specimen. This serosa is predominantly shaggy flowers-leal with multiple fibromembranous adhesions and adherent fat and red-brown blood clot. The lumen measures up to 0.3 cm and contains hemorrhagic and fecal debris. The mucosa is mottled flowers-pink with a small amount of focal hemorrhage and the wall thickness averages 0.1 cm. Crushed Stone Grader sections, one cassette. Signed by and Reported on: Jen Hernandez MD 02/14/19 9940 END OF REPORT DEPARTMENT OF PATHOLOGY, [address] [place] [address] Juarez Mcdaniel M.D. Director [facility] # [id number] 3 [facility] Severe Sepsis and Septic Shock Management Bundle Measure requires all lactic acids initially measuring >2.0 mmol/L be repeated. 4 Because ethnic data is not always readily [...] 15-29 5 Kidney failure <15 (or dialysis) 5 <5.0 Negative 5.0 - 25.0 Indeterminate (Repeat testing recommended after 72 hours) >25.0 Positive Perimenopausal women can display HCG levels of up to 20 mIU/mL 6 Studio Producer: [id number] Test Disclaimer: Positive bacteria, red blood cells, white blood cells, early , low specific gravity, and other factors may cause false positive or negative results. It is recommended to retest unexpected results within 24 to 72 hours with a serum test when applicable. If is still suspected, please repeat test after 48 to 72 hours. 7 Studio Producer: [id number] 8 Desirable <150 Borderline high 150-199 High 200-499 Very High >500 9 Desirable <200 Borderline high 200-239 High >239 10 Low <40 Desirable: 40-60 High: >60 11 Desirable: <100 mg/dL Near Optimal: 100-129 mg/dL Borderline High: 130-159 mg/dL High: 160-189 mg/dL Very High: >189 mg/dL 12 Because ethnic data is not always readily [...] 15-29 5 Kidney failure <15 (or dialysis) 13 FASTING 14 Serologic response to B. burgdorferi infection is not detected, but cannot rule out early infection during which low or undetectable antibody levels to B. burgdorferi may be present. If clinically indicated, a new serum specimen should be submitted in 7-14 days. Test Performed by: [place] [address] Director Recreation: Shawn Case II, M.D., Ph.D. Procedures Date Code Description Status 05/30/2019 [id number] Diabetic Retinal Eye Exam Completed Encounters Type Date Location Provider Dx Diagnosis Office Visit 05/17/2019 Ruperto Wong S06.0x0A Concussion without 3:40p Stephen Apodaca M.D. loss of Ccmob consciousness, initial encounter Office Visit 08/22/2018 Sue Wong Z02.89 Encounter for other 9:00a Mary Apodaca M.D. administrative Medicine-[place] examinations ood Z23 Encounter for immunization Office Visit 11/04/2017 Sue Wong J06.9 Acute upper 4:40p Jess Apodaca M.D. respiratory infection, unspecified Office Visit 09/10/2016 Sue Wong Z00.00 Encntr for 3:20p Jess Apodaca M.D. general adult medical exam w/o abnormal findings M54.5 Low back pain G56.03 Carpal tunnel syndrome, bilateral upper limbs Z13.220 Encounter for screening for lipoid disorders Z13.1 Encounter for screening for diabetes mellitus R53.83 Other fatigue Z23 Encounter for immunization Plan of Treatment 06/16/2019 - Flaca Nelson MDZ00.00 Encounter for general adult medical examination without abnoComments:You are up to date with cervical cancer screening. Your cholesterol profile and other labs were reviewed today and are all normal. Remember to wear sunscreen and see your dentist regularly.For optimum health, I recommend some form of regular exercise and integrating a lot of plant-based foods into your daily diet.Follow up:Physical in 1 yearH53.15 Visual distortions of shape and sizeComments:I am ordering an MRI of the brain to check for multiple sclerosis or a tumor that might be pressing on the optic nerves. You will get a call from the hospital when it is approved.Please request resultsthrough the portal 2 days after it is done.Please keep appointment with ophthalmologistReferral:Cori Holman MD, [id number] Dizziness and giddinessComments:To further evaluate your complaint I am ordering blood work to make sure you are not anemic.The thyroid panel and CRP ( inflammation marker) were normal last month.
== END 2019-06-26 09:35 | disposition home or self-care (01) ==
LOC: UCEAST 08:51
DX: S90.31XA Contusion of right foot, initial encounter (principal); W51.XXXA Accidental striking against or bumped into by another person, initial encounter; Y93.A1 Activity, exercise machines primarily for cardiorespiratory conditioning; Y92.9 Unspecified place or not applicable; Y99.8 Other external cause status
CPT/HCPCS: 99211; G0463